=== PATIENT | male | born 1990 | race Caucasian/White ===

== ENCOUNTER 2020-10-04 18:34 | Inpatient (IN) | payer MEDICAID ==
[~2020-10-04] VITALS: Ht 180.3 cm; Wt 63.0 kg
[2020-10-04 21:04] VITALS: BP 107/64
[2020-10-04] MEDS ORDERED: HALOPERIDOL 5 MG TABLET PO PRN (21:15)
[2020-10-04 21:59] VITALS: BP 114/66
[2020-10-04 22:04] LABS: GLUCOMETER DEV NAME(LOC) BV3N.; GLUCOSE,POINT OF CARE 112 MG/DL (70-110)
[2020-10-04] MEDS ORDERED: GLUCAGON,HUMAN RECOMBINANT 1 MG VIAL IM PRN ×2 (22:30→23:30)
[2020-10-04 23:01] LABS: GLUCOMETER DEV NAME(LOC) BV3N.; GLUCOSE,POINT OF CARE 93 MG/DL (70-110)
[2020-10-04 23:01] LABS: GLUCOMETER DEV NAME(LOC) BV3N.; GLUCOSE,POINT OF CARE 27 MG/DL (70-110)
[2020-10-04] MEDS ORDERED: CITA-144 PO (23:08)
[2020-10-04] MEDS ORDERED: INSU3INS5 SQ (23:11)
[2020-10-04] MEDS ORDERED: INSU100I26 SQ (23:11)
[2020-10-04 23:15] LABS: GLUCOMETER DEV NAME(LOC) BV3N.; GLUCOSE,POINT OF CARE 152 MG/DL (70-110)
[2020-10-04] MEDS ORDERED: INSULIN LISPRO 100 UNITS/ML SQ PRN (23:30)
[2020-10-04] MEDS ORDERED: INFLUENZA VIRUS VACCINE QVS 2020-21 (6MO+)/PF 60 MCG/0.5 ML SYRINGE IM ONE (23:45)
[2020-10-05 01:29] VITALS: BP 125/70
[2020-10-05 06:01] LABS: GLUCOMETER DEV NAME(LOC) BV3N.; GLUCOSE,POINT OF CARE 343 MG/DL (70-110)
[2020-10-05] MEDS: INSULIN LISPRO 100 UNITS/ML SQ PRN ×4 (06:46→21:55)
[2020-10-05] MEDS ORDERED: IBUPROFEN 400 MG TABLET PO PRN (07:45)
[2020-10-05] MEDS ORDERED: MAG HYDROX/AL HYDROX/SIMETH ES 30 ML SUSPENSION UDCUP PO PRN (07:45)
[2020-10-05] MEDS ORDERED: PETROLATUM,WHITE 28 GM JELLY TP PRN (07:45)
[2020-10-05] MEDS ORDERED: LOPERAMIDE HCL 2 MG CAPSULE PO PRN (07:45)
[2020-10-05] MEDS ORDERED: ALBUTEROL SULFATE HFA 90 MCG/PUFF 8 GM INHALER IH PRN (07:45)
[2020-10-05] MEDS ORDERED: DOCUSATE SODIUM 100 MG CAPSULE PO PRN (07:45)
[2020-10-05] MEDS ORDERED: GuaiFENesin/D-METHORPHAN [SUGAR-FREE] 200-20MG/10 ML SYRUP UDCUP PO PRN (07:45)
[2020-10-05] MEDS ORDERED: ACETAMINOPHEN 325 MG TABLET PO PRN (07:45)
[2020-10-05] MEDS ORDERED: ONDANSETRON HCL 4 MG TABLET PO PRN (07:45)
[2020-10-05] MEDS ORDERED: CloNIDine HCL 0.1 MG TABLET PO PRN (07:45)
[2020-10-05] MEDS ORDERED: MAGNESIUM HYDROXIDE SUSPENSION 30 ML UDCUP PO PRN (07:45)
[2020-10-05 08:01] VITALS: BP 123/63
[2020-10-05] MEDS: INSULIN GLARGINE,HUM.REC.ANLOG 100 UNITS/ML SQ SCH ×2 (08:51→17:15)
[2020-10-05 09:08] LABS: EOSINOPHILS % (AUTO) 3.8 % (1.0-6.0); HEMATOCRIT 45.4 % (41-53); HEMOGLOBIN 15.1 g/dL (13.5-17.5); LYMPHOCYTES # (AUTO) 1.9 K/uL (1.0-4.8); LYMPHOCYTES % (AUTO) 28.8 % (22.0-44.0); MEAN CORPUSCULAR HEMOGLOBIN 30.5 pg (26.0-34.0); MEAN CORPUSCULAR HGB CONC 33.3 G/dL (31.0-37.0); MEAN CORPUSCULAR VOLUME 92 fL (80-100); MONOCYTES # (AUTO) 0.5 K/uL (0.1-1.0); MONOCYTES % (AUTO) 7.4 % (2.0-9.0); NEUTROPHILS # (AUTO) 3.9 K/uL (1.8-7.7); PLATELET COUNT (AUTO) 254 K/uL (150-450); RED BLOOD CELL COUNT(AUTO) 4.95 MIL/uL (4.50-5.90); RED CELL DISTRIBUTION WIDTH 12.6 % (11.5-14.5)
[2020-10-05 09:32] LABS: HEMOGLOBIN A1C 7.5 % (3.8-5.6)
[2020-10-05] MEDS: LORazepam 1 MG TABLET PO PRN ×2 (10:01→16:53)
[2020-10-05 10:32] LABS: ALANINE AMINOTRANSFERASE 21 U/L (12-78); ALBUMIN 3.7 g/dL (3.4-5.0); ALKALINE PHOSPHATASE 73 U/L (46-116); ANION GAP 9 mmol/L (8-16); ASPARTATE AMINOTRANSFERASE 12 U/L (15-37); BILIRUBIN,TOTAL 0.8 mg/dL (0.1-1.0); CALCIUM, TOTAL 8.9 mg/dL (8.8-10.5); CARBON DIOXIDE 29 mmol/L (22-29); CHLORIDE 100 mmol/L (98-107); CHOL/HDL RATIO 2.1 (4.2-7.3); CHOLESTEROL 172 mg/dL (131-200); CREATININE 0.85 mg/dL (0.60-1.30); FREE T4 (FREE THYROXINE) 0.74 ng/dL (0.76-1.46); GLOMERULAR FILTR. RATE CALC > 60 mL/min (>60); GLUCOSE,RANDOM 345 mg/dL (70-110); HDL CHOLESTEROL 81 mg/dL (40-60); LDL CHOL (CALC.) 72 mg/dL (0-130); POTASSIUM 4.1 mmol/L (3.5-5.1); SODIUM SERUM 138 mmol/L (136-145); THYROID STIMULATING HORMONE 2.63 uIU/mL (0.36-3.74); TRIGLYCERIDES 96 mg/dL (15-150); UREA NITROGEN, BLOOD 14 mg/dL (7-18)
[2020-10-05] MEDS: NICOTINE 14 MG/24 HOUR PATCH TD PRN (10:56)
[2020-10-05] MEDS: ESCITALOPRAM OXALATE 10 MG TABLET PO SCH (12:18)
[2020-10-05 13:02] LABS: GLUCOMETER DEV NAME(LOC) BV3N.; GLUCOSE,POINT OF CARE 284 MG/DL (70-110)
[2020-10-05 16:04] VITALS: BP 114/69
[2020-10-05 17:34] LABS: GLUCOMETER DEV NAME(LOC) BV3N.; GLUCOSE,POINT OF CARE 368 MG/DL (70-110)
[2020-10-05] MEDS ORDERED: INSULIN GLARGINE,HUM.REC.ANLOG 100 UNITS/ML SQ SCH (21:00)
[2020-10-05] MEDS: ZOLPIDEM TARTRATE 10 MG TABLET PO PRN (21:35)
[2020-10-05 21:37] LABS: GLUCOMETER DEV NAME(LOC) BV3N.; GLUCOSE,POINT OF CARE 229 MG/DL (70-110)
[2020-10-06] VITALS: BP 115/67
[2020-10-06 06:06] LABS: GLUCOMETER DEV NAME(LOC) BV3N.; GLUCOSE,POINT OF CARE 167 MG/DL (70-110)
[2020-10-06] MEDS: INSULIN LISPRO 100 UNITS/ML SQ PRN ×3 (06:22→20:17)
[2020-10-06] MEDS: LORazepam 1 MG TABLET PO PRN ×2 (07:09→15:01)
[2020-10-06 08:01] VITALS: BP 113/63
[2020-10-06 08:24] LABS: APPEARANCE,URINE CLEAR (CLEAR); BILIRUBIN,URINE NEGATIVE (NEGATIVE); GLUCOSE, URINE (UA) >=1000 mg/dL (NEGATIVE); KETONES,URINE 15 mg/dL (NEGATIVE); LEUKOCYTE ESTERASE ,URINE NEGATIVE (NEGATIVE); NITRATE,URINE NEGATIVE (NEGATIVE); OCCULT BLOOD,URINE NEGATIVE (NEGATIVE); PH,URINE 6.5 (5.0-8.0); PROTEIN,URINE NEGATIVE (NEGATIVE); UROBILINOGEN,URINE 0.2 mg/dL (<=1.0)
[2020-10-06 08:30] LABS: AMPHET/METH SCREEN,URINE NEGATIVE (NEGATIVE); BARBITURATE SCREEN, URINE NEGATIVE (NEGATIVE); BENZODIAZEPINES SCREEN,URINE NEGATIVE (NEGATIVE); CANNABINOID SCREEN,URINE POSITIVE (NEGATIVE); COCAINE SCREEN,URINE NEGATIVE (NEGATIVE); METHADONE SCREEN, URINE NEGATIVE (NEGATIVE); OPIATE SCREEN,URINE NEGATIVE (NEGATIVE)
[2020-10-06 08:33] LABS: PHENCYCLIDINE SCREEN,URINE NEGATIVE (NEGATIVE)
[2020-10-06 08:36] LABS: BACTERIA,URINE None Seen /HPF (None Seen); RBC,URINE None Seen /HPF (0-2); WBC,URINE None Seen /HPF (0-5)
[2020-10-06] MEDS: ESCITALOPRAM OXALATE 10 MG TABLET PO SCH (08:47)
[2020-10-06] MEDS: INSULIN GLARGINE,HUM.REC.ANLOG 100 UNITS/ML SQ SCH ×2 (08:52→16:57)
[2020-10-06] MEDS: NICOTINE 14 MG/24 HOUR PATCH TD PRN (08:53)
[2020-10-06 11:09] LABS: GLUCOMETER DEV NAME(LOC) BV3N.; GLUCOSE,POINT OF CARE 170 MG/DL (70-110)
[2020-10-06 16:01] VITALS: BP 135/76
[2020-10-06 17:07] LABS: GLUCOMETER DEV NAME(LOC) BV3N.; GLUCOSE,POINT OF CARE 143 MG/DL (70-110)
[2020-10-06] MEDS: ZOLPIDEM TARTRATE 10 MG TABLET PO PRN (20:17)
[2020-10-06 20:37] LABS: GLUCOMETER DEV NAME(LOC) BV3N.; GLUCOSE,POINT OF CARE 277 MG/DL (70-110)
[2020-10-07 06:12] VITALS: BP 120/64
[2020-10-07 06:25] LABS: GLUCOMETER DEV NAME(LOC) BV3N.; GLUCOSE,POINT OF CARE 308 MG/DL (70-110)
[2020-10-07] MEDS: INSULIN LISPRO 100 UNITS/ML SQ PRN ×2 (06:46→11:54)
[2020-10-07 08:20] VITALS: BP 126/82
[2020-10-07] MEDS: ESCITALOPRAM OXALATE 10 MG TABLET PO SCH (09:25)
[2020-10-07] MEDS: INSULIN GLARGINE,HUM.REC.ANLOG 100 UNITS/ML SQ SCH (09:28)
[2020-10-07] MEDS: NICOTINE 14 MG/24 HOUR PATCH TD PRN (09:37)
[2020-10-07] MEDS: LORazepam 1 MG TABLET PO PRN (09:37)
[2020-10-07] MEDS ORDERED: INSLAN SQ (10:41)
[2020-10-07] MEDS ORDERED: ESCI-8 PO (10:41)
[2020-10-07 11:33] LABS: GLUCOMETER DEV NAME(LOC) BV3N.; GLUCOSE,POINT OF CARE 217 MG/DL (70-110)
== END 2020-10-07 13:50 | disposition home or self-care (01) | DRG 751 ==
LOC: B3A 21:13
PROVIDERS: ADMIT Psychiatry & Neurology Child & Adolescent Psychiatry; ATTEND Psychiatry & Neurology Child & Adolescent Psychiatry
DX: F33.2 Major depressive disorder, recurrent severe without psychotic features (principal); R45.851 Suicidal ideations; E11.65 Type 2 diabetes mellitus with hyperglycemia; E03.9 Hypothyroidism, unspecified; F10.10 Alcohol abuse, uncomplicated; F41.9 Anxiety disorder, unspecified
CPT/HCPCS: 80307; 83036; 84439; 84443; 90686; J1815